=== PATIENT | male | born 1950 | race Caucasian/White ===

== ENCOUNTER → 2024-04-17 | Emergency (ER) | payer OTHER ==
[~2024-04-17] VITALS: Ht 177.8 cm; Wt 76.2 kg
[~2024-04-17] MED LIST: ETOMIDATE 2 MG/ML VIAL ONE; MORPHINE SULFATE INJ 4 MG/ML DISP.SYRIN ONE
[2024-04-17] MEDS: MORPHINE SULFATE INJ 2 MG/ML DISP.SYRIN IM ONE (18:36)
[2024-04-17] MEDS: ETOMIDATE 2 MG/ML VIAL IV ONE (19:05)
[2024-04-17 21:49] VITALS: BP 150/100; TEMP 98; O2SAT 99
== END | disposition home or self-care (01) ==
LOC: ER 16:57
DX: S43.084A Other dislocation of right shoulder joint, initial encounter (principal); Z86.711 Personal history of pulmonary embolism; X58.XXXA Exposure to other specified factors, initial encounter; Y93.68 Activity, volleyball (beach) (court); Y92.89 Other specified places as the place of occurrence of the external cause; Y99.8 Other external cause status
CPT/HCPCS: 99285; 23650; 99152; 73030; 73020; 96372; J2270; J3490; G0500